=== PATIENT | male | born 1995 | race Caucasian/White ===

== ENCOUNTER 2017-02-10 12:24 | Emergency (ER) | payer MEDICAID ==
[2017-02-10 12:49] LABS: BASOPHILS 0.4 % (0-2); EOSINOPHILS 4.1 % (0-7); HEMATOCRIT 51.1 % (42.0-54.0); HEMOGLOBIN 18.1 g/dL (13.5-17.5); IMMATURE GRANULOCYTES 0.6 % (0-5); LYMPHOCYTES 33.3 % (15-50); MCHC 35.4 g/dL (31.0-37.0); MCV 90.3 fL (80.0-100.0); MONOCYTES 7.6 % (2-11); PLATELET COUNT 186 10x3/uL (130-400); RBC 5.66 10x6/uL (4.20-6.10); WBC 10.9 10x3/uL (4.8-10.8)
[2017-02-10 13:02] LABS: ALKALINE PHOSPHATASE 111 U/L (46-116); ALT (SGPT) 25 U/L (10-68); BILIRUBIN - TOTAL 0.37 mg/dL (0.2-1.3); CALC OSMOLALITY 278 mosm/kg (275-300); CALCIUM 9.2 mg/dL (8.5-10.1); CARBON DIOXIDE 28.3 mmol/L (21.0-32.0); CHLORIDE - SERUM 103 mmol/L (98-107); GLUCOSE 93 mg/dL (74-106); POTASSIUM - SERUM 4.3 mmol/L (3.5-5.1); PROTEIN - SERUM 8.1 g/dL (6.4-8.2); SODIUM 139 mmol/L (136-145); UREA NITROGEN 16 mg/dL (7-18); eGFR NON AFRICAN AMERICAN > 90 mL/min (90-120)
[2017-02-10 13:18] LABS: AMYLASE - SERUM 29 U/L (25-115); LIPASE 92 U/L (73-393)
[2017-02-10 13:50] LABS: APPEARANCE CLEAR (CLEAR); COLOR YELLOW (YELLOW); GLUCOSE NEGATIVE (NEGATIVE); NITRITE NEGATIVE (NEGATIVE); PROTEIN NEGATIVE (NEGATIVE); SPECIFIC GRAVITY 1.015 (1.005-1.020)
[2017-02-10 13:51] LABS: BACTERIA NONE SEEN /hpf (NONE SEEN); BILIRUBIN NEGATIVE (NEGATIVE); EPITHELIAL CELLS RARE /hpf (0-5); KETONE NEGATIVE (NEGATIVE); RED CELLS - URINE OCC /hpf (0-5); UROBILINOGEN NORMAL (NORMAL)
== END 2017-02-10 14:41 | disposition home or self-care (01) ==
LOC: D.ER 12:24
PROVIDERS: Family Medicine
DX: R10.9 Unspecified abdominal pain (principal)

== ENCOUNTER 2019-11-23 08:21 | Emergency (ER) | payer SELFPAY ==
[~2019-11-23] VITALS: Ht 170.2 cm; Wt 109.1 kg
[2019-11-23 08:26] VITALS: Ht 170.2 cm; Wt 109.1 kg
[2019-11-23] MEDS ORDERED: EPIPEN 2-P0.3 MG/0.3 IM (09:13)
[2019-11-23] MEDS ORDERED: BENADRYL50 MG PO (09:13)
[2019-11-23] MEDS ORDERED: PREDNISONE50 MG PO (09:13)
[2019-11-23 09:18] LABS: BASOPHILS 0.3 % (0-2); EOSINOPHILS 3.2 % (0-7); HEMATOCRIT 53.8 % (42.0-54.0); HEMOGLOBIN 19.3 g/dL (13.5-17.5); IMMATURE GRANULOCYTES 1.1 % (0-5); LYMPHOCYTES 33.9 % (15-50); MCH 32.3 pg (26.0-34.0); MCHC 35.9 g/dL (31.0-37.0); MEAN PLATELET VOLUME 11.6 fL (7.4-10.4); MONOCYTES 5.5 % (2-11); PLATELET COUNT 238 10x3/uL (130-400); RBC 5.98 10x6/uL (4.20-6.10); WBC 16.9 10x3/uL (4.8-10.8)
[2019-11-23 09:27] LABS: CALC OSMOLALITY 279 mosm/kg (275-300); CALCIUM 8.3 mg/dL (8.5-10.1); CARBON DIOXIDE 21.4 mmol/L (21.0-32.0); CHLORIDE - SERUM 101 mmol/L (98-107); CREATININE - SERUM 1.2 mg/dL (0.6-1.3); POTASSIUM - SERUM 3.4 mmol/L (3.5-5.1); SODIUM 135 mmol/L (136-145); UREA NITROGEN 28 mg/dL (7-18); eGFR NON AFRICAN AMERICAN 79 mL/min (90-120)
[2019-11-23 09:29] LABS: GLUCOSE 172 mg/dL (74-106)
[2019-11-23 09:35] LABS: ALBUMIN 3.7 g/dL (3.4-5.0); ALKALINE PHOSPHATASE 117 U/L (30-120); ALT (SGPT) 40 U/L (10-68); BILIRUBIN - TOTAL 0.35 mg/dL (0.2-1.3); PROTEIN - SERUM 7.5 g/dL (6.4-8.2)
[2019-11-23 12:08] VITALS: BP 156/95
== END 2019-11-23 12:09 | disposition home or self-care (01) ==
LOC: D.ER 08:21
PROVIDERS: Family Medicine
DX: T78.40XA Allergy, unspecified, initial encounter (principal); L50.9 Urticaria, unspecified; R06.2 Wheezing